=== PATIENT | female | born 1990 | race Two or more races ===

== ENCOUNTER 2021-12-09 08:52 | Outpatient (CLI) | payer OTHER | END 2021-12-09 09:14 | disposition home or self-care (01) | LOC: RAD 08:52 | PROVIDERS: ATTEND Orthopaedic Surgery | DX: M65.4 Radial styloid tenosynovitis [de Quervain] (principal) | CPT/HCPCS: 73221 ==

== ENCOUNTER 2023-10-31 13:32 | Outpatient (CLI) | payer OTHER | END 2023-10-31 13:37 | disposition home or self-care (01) | LOC: MRI 13:32 | DX: M54.2 Cervicalgia (principal); M54.6 Pain in thoracic spine; M54.50 Low back pain, unspecified | CPT/HCPCS: 72141; 72148 ==